=== PATIENT | female | born 1995 | race Caucasian/White ===

== ENCOUNTER 2017-09-11 22:41 | Emergency (ER) | payer OTHER ==
[2017-09-11 22:46] VITALS: BP 120/71
== END 2017-09-12 01:07 | disposition left against medical advice (07) ==
LOC: ED 22:41
DX: R07.89 Other chest pain (principal); Z53.21 Procedure and treatment not carried out due to patient leaving prior to being seen by health care provider
CPT/HCPCS: 93005; 99282

== ENCOUNTER 2018-06-23 14:26 | Emergency (ER) | payer OTHER ==
[2018-06-23 16:51] LABS: ABS Basophils 0 10^3/ul (0-0.2); ABS Eosinophils 0.2 10^3/ul (0-0.6); ABS Lymphocytes 1.8 10^3/ul (1.0-4.8); ABS Monocytes 0.6 10^3/ul (0-0.8); ABS Nucleated RBC 0 10^3/ul; Eosinophil % 2.5 % (0-6); Hematocrit 43 % (35-47); Hemoglobin 14.5 g/dl (12.0-16.0); Lymphocyte % 23.6 % (25-47); Mean Corpuscular HGB Conc 34 g/dl (31-36); Mean Corpuscular Hemoglobin 30 pg (27-31); Mean Corpuscular Volume 88 fL (80-97); Mean Platelet Volume 8.5 um3 (7.4-10.4); Nucleated Red Blood Cells % 0.1; Platelet Count 261 10^3/ul (150-450); Red Blood Count 4.86 10^6/ul (4.00-5.40); Red Cell Distribution Width 13 % (10.5-15); White Blood Count 7.6 10^3/ul (3.5-10.8)
--- NOTE | 2018-06-23 17:16 | RAD ---
Indication: Headaches. CT of the brain performed without IV contrast. Ventricular structures are midline. No midline shift is noted. The extra-axial spaces are unremarkable. There is no evidence of intracranial mass or hemorrhage. No other high or low density lesions are identified. Mastoid air cells and paranasal sinuses are otherwise unremarkable. IMPRESSION: NO INTRACRANIAL MASS OR HEMORRHAGE IS NOTED.
[2018-06-23 17:18] LABS: EGFR Non-African American 115.1 (>60)
--- NOTE | 2018-06-23 17:42 | ED ---
Headache - HPI Summary HPI Summary: The pt is a 22 y/o female presenting to the [facility] c/o of persistent HARKINS since about 3 days ago worsened today. The pt [place] The pain rated 3/10 in severity is described as a pressure and is aggravated by coffee. She notes difficulty concentrating , neck pain, shoulder stiffness, insomnia , dyspnea , and a rash on her LUE. The pt denies LOC , taking longer to complete tasks , sore throat, melena, dysuria, bruises, anxiety, depression, vomiting , diarrhea, and loss of appetite. She also reports a hx of 3 concussions in high school but denies a hx of asthma. - History Of Current Complaint Chief Complaint: EDHeadache Stated Complaint: HEAD PRESSURE X 3 DAYS Hx Obtained From: Patient Onset/Duration: Started days ago - 3 days, Still Present, Worse Since - Today Currently Pain Is: Current Pain Scale(0-10)= - 3/10, Mild Timing: Constant Character: Pressure Aggravating Factor: Other - Coffee consumption Allevating Factors: Nothing Associated Signs And Symptoms: Negative - LOC , taking longer to complete tasks , sore throat, melena, dysuria, bruises, anxiety, depressions , vomiting , diarrhea, and loss of appetite, Other (Noted In Comments) - Positive:difficulty concentrating, neck pain, shoulder stiffness , insomnia , dyspnea , and a rash on her LUE Related History: Recent Trauma: - 05/27/2018 - Allergies/Home Medications Allergies/Adverse Reactions: Allergies Allergy/AdvReac Type Severity Reaction Status Date / Time No Known Allergies Allergy Verified 06/23/18 14:31 Home Medications: Home Medications Keflex 500 CAP* 500 mg PO TID 06/23/18 [History Confirmed 06/23/18] PMH/Surg Hx/FS Hx/Imm Hx Previously Healthy: Yes Cardiovascular History: Denies: Hx Syncope Respiratory History: Denies: Hx Asthma GI History: Denies: Hx Irritable Bowel Opthamlomology History: Denies: Hx Legally Blind EENT History: Denies: Hx Deafness Neurological History: Reports: Other Neuro Impairments/Disorders - Hx of concussions in high school - Cancer History Hx Hematologic Symptoms: No Hx Chemotherapy: No Hx Radiation Therapy: No Hx Palliative Cancer Treatment: No - Surgical History Other Surgical History: None - Immunization History Immunizations Up to Date: Yes Infectious Disease History: No Infectious Disease History: Denies: Traveled Outside the [place] in Last 30 Days - Family History Known Family History: Positive: Unknown - Social History Occupation: Student Lives: With Family - Domestic male partner Alcohol Use: Weekly Substance Use Type: Reports: None Smoking Status (MU): Never Smoked Tobacco Review of Systems Constitutional: Negative - Taking longer to complete tasks, , Other - Positive: Difficulty concentrating, insomnia Positive: Other - Positive: Neck pain, shoulder stiffness, . Negative: Sore Throat Positive: Other - Positive: Dyspnea Gastrointestinal: Negative - Melena, loss of appetite Negative: Vomiting, Diarrhea Negative: dysuria Positive: Rash - On the LUE. Negative: Bruising Positive: Headache. Negative: Syncope Negative: Anxious, Depressed All Other Systems Reviewed And Are Negative: No Physical Exam - Summary Physical Exam Summary: Appearance: Alert, conversive, nontoxic appearing Skin: Warm, dry, no mottling, no rashes, no contusions HEENT: EOMI, PERRL, moist mucous membranes Neck: No masses on the neck, supple Respiratory: Clear to auscultation, breath sounds present, no rales, no rhonchi , no wheezes Cardiovascular: RRR, pulses are symmetrical in both lower and upper extremities Abdomen: Soft, non-tender Bowel Sounds: Present Musculoskeletal: No CVA tenderness, no obvious deformity, moving all extremities in a grossly normal manner Neurological: A&Ox3, CN II-XII Intact, moving all extremities symmetrically GCS: 15 Psychiatric: Normal affect and mood Triage Information Reviewed: Yes Vital Signs On Initial Exam: Initial Vitals Temp Pulse Resp BP Pulse Ox 98.4 F 61 14 120/68 98 06/23/18 14:27 06/23/18 14:27 06/23/18 14:27 06/23/18 14:27 06/23/18 14:27 Vital Signs Reviewed: Yes Diagnostics - Vital Signs Vital Signs Temp Pulse Resp BP Pulse Ox 06/23/18 14:27 98.4 F 61 14 120/68 98 - Laboratory Lab Results: Lab Results 06/23/18 06/23/18 Range/Units 16:35 16:35 WBC 7.6 (3.5-10.8) 10^3/ul RBC 4.86 (4.00-5.40) 10^6/ul Hgb 14.5 (12.0-16.0) g/dl Hct 43 (35-47) % MCV 88 (80-97) fL MCH 30 (27-31) pg MCHC 34 (31-36) g/dl RDW 13 (10.5-15) % Plt Count 261 (150-450) 10^3/ul MPV 8.5 (7.4-10.4) um3 Neut % (Auto) 65.7 (38-83) % Lymph % (Auto) 23.6 L (25-47) % Starke % (Auto) 7.7 H (0-7) % Eos % (Auto) 2.5 (0-6) % Baso % (Auto) 0.5 (0-2) % Absolute Neuts (auto) 5.0 (1.5-7.7) 10^3/ul Absolute Lymphs (auto) 1.8 (1.0-4.8) 10^3/ul Absolute Monos (auto) 0.6 (0-0.8) 10^3/ul Absolute Eos (auto) 0.2 (0-0.6) 10^3/ul Absolute Basos (auto) 0 (0-0.2) 10^3/ul Absolute Nucleated RBC 0 10^3/ul Nucleated RBC % 0.1 Sodium 138 (135-145) mmol/L Potassium 4.0 (3.5-5.0) mmol/L Chloride 104 (101-111) mmol/L Carbon Dioxide 30 (22-32) mmol/L Anion Gap 4 (2-11) mmol/L BUN 10 (6-24) mg/dL Creatinine 0.65 (0.51-0.95) mg/dL Est GFR ( Amer) 139.2 (>60) Est GFR (Non-Af Amer) 115.1 (>60) BUN/Creatinine Ratio 15.4 (8-20) Glucose 89 (70-100) mg/dL Calcium 9.4 (8.6-10.3) mg/dL Total Bilirubin 1.40 H (0.2-1.0) mg/dL AST 17 (13-39) U/L ALT 20 (7-52) U/L Alkaline Phosphatase 46 (34-104) U/L Total Protein 6.0 L (6.4-8.9) g/dL Albumin 4.0 (3.2-5.2) g/dL Globulin 2.0 (2-4) g/dL Albumin/Globulin Ratio 2.0 (1-3) Result Diagrams: 06/23/18 16:35 06/23/18 16:35 Lab Statement: Any lab studies that have been ordered have been reviewed, and results considered in the medical decision making process. - CT Brain CT CT Interpretation Completed By: Radiologist - IMPRESSION: NO INTRACRANIAL MASS OR HEMORRHAGE IS NOTED. The ED physician has reveiewed this radiology report. Headache Course/Dx - Course Course Of Treatment: A 22 year-old (M/F) [facility] persistent HARKN[place] since about 3 days ago worsened today. [place] The pain rated 3/10 in severity is described as a pressure and is aggravated by coffee. She notes difficulty concentrating, neck pain, shoulder stiffness, insomnia, dyspnea, and a rash on her LUE. A brain CT is negative. The pt will be discharged with a final Dx of acute headache. I discussed the radiology report and the discharge plan with the pt. She is agreeable with this plan. Allergies noted. - Diagnoses Provider Diagnoses: Acute headache Discharge - Sign-Out/Discharge Documenting (check all that apply): Patient Departure - DC - Discharge Plan Condition: Stable Disposition: HOME Patient Education Materials: Acute Headache (ED) Referrals: Sylvie Craft NP [Primary Care Provider] - 3 Days Additional Instructions: Follow up with your primary care physician. return if worse or any new symptoms. Tylenol and motrin for pain. If you have persistent problems concentrating and performing tasks, please discuss with your doctor the need for evaluation by a concussion specialist. - Attestation Statements Document Initiated by Scribe: Yes Documenting Scribe: Heather Oquendo Provider For Whom Scribe is Documenting (Include Credential): Dr. Eboni Pelaez MD Scribe Attestation: Heather Payne , scribed for Dr. Eboni Pelaez MD on 06/24/18 at 0533.
[2018-06-23 18:10] VITALS: BP 115/89
== END 2018-06-23 18:09 | disposition home or self-care (01) ==
LOC: ED 14:26
DX: R51 Headache (principal); R21 Rash and other nonspecific skin eruption; R06.00 Dyspnea, unspecified; M54.2 Cervicalgia
CPT/HCPCS: 36415; 70450; 80053; 85025; 99282

== ENCOUNTER 2019-04-02 13:37 | Emergency (ER) | payer OTHER ==
[2019-04-02 13:46] VITALS: BP 141/88
--- OUTSIDE RECORDS SUMMARY | 2019-04-02 13:53 | XMS REPORT | Continuity of Care Document ---
:1995 External Reference #:[id number] Author Name Yudy Coppola PA-C Address [address] [place] [address] [place] [address] Care Team Providers Name Role Phone Vicente Riggs MD Care Team Information Bank Analyst Unavailable Vicente Riggs MD Primary Care Physician Unavailable Payers Date Identification Numbers Payment Provider Subscriber Policy Number: [id number] [facility] Nallely Soaresci PayID: [id number] [address] [place] [address] Policy Number: [id number] [facility] [place] Shelia PayID: [id number] [address] [place] [address] Advance Directives Description No Information Available Problems Active Problems Provider Date Gastroesophageal reflux disease Yudy Coppola PA-C Onset: 02/27/2019 Abdominal pain Yudy Coppola PA-C Onset: 02/27/2019 Right upper quadrant pain Yudy Coppola PA-C Onset: 01/24/2019 Chest pain Yudy Coppola PA-C Onset: 01/24/2019 Gastrointestinal tract finding Yudy Coppola PA-C Onset: 01/24/2019 Epigastric pain Yudy Coppola PA-C Onset: 01/24/2019 Family History Description No Information Available Social History Type Date Description Comments Sex Unknown Tobacco Use Start: Unknown Patient has never smoked Smoking Status Reviewed: 02/27/19 Patient has never smoked Allergies, Adverse Reactions, Alerts Description No Known Drug Allergies Medications Active Medications SIG Qnty Indications Ordering Provider Date No Active Medications Unknown 02/27/2019 History Medications No Active Medications Unknown 01/24/2019 - 01/24/2019 Esomeprazole 1 cap daily at 30caps R10.13 Stephani 01/24/2019 - Magnesium least 30 minutes Foor-Pessin, MD 02/27/2019 20mg Capsules prior to DR breakfast Immunizations Description No Information Available Vital Signs Date Vital Result Comment 02/27/2019 2:37pm Height 67 inches 5'7" Weight 130.00 lb BMI (Body Mass Index) 20.4 kg/m2 01/24/2019 12:45pm Height 67 inches 5'7" Weight 129.00 lb BP Systolic 128 mmHg BP Diastolic 87 mmHg Heart Rate 68 /min BMI (Body Mass Index) 20.2 kg/m2 Results Test Date Facility Test Result H/L Range Note Xray 01/23/2019 [facility] [place], Abdomen, Limited Includes <pending> Soft Tissue(17945) Procedures Description No Information Available Encounters Type Date Location Provider Dx Diagnosis Office Visit 01/24/2019 [facility] Yudy Garcia R10.13 Epigastric pain 1:[facility] Co[facility] PA-C R10.11 Right upper quadrant pain R93.3 Abnormal findings on dx imaging of prt digestive tract R07.89 Other chest pain Plan of Treatment No Information Available
== END 2019-04-02 15:12 | disposition left against medical advice (07) ==
LOC: ED 13:37
DX: R06.02 Shortness of breath (principal); R07.9 Chest pain, unspecified; Z53.21 Procedure and treatment not carried out due to patient leaving prior to being seen by health care provider
CPT/HCPCS: 99281